=== PATIENT | female | born 1985 | race Caucasian/White ===

== ENCOUNTER 2017-10-19 09:57 | Emergency (ER) | payer OTHER, MEDICAID ==
[~2017-10-19] VITALS: Ht 144.8 cm; Wt 72.6 kg
[~2017-10-19 09:57] MED LIST: ACETAMINOPHEN-1 EAC1 PO; ATENOLOL; ATENOLOL 100MG100 M2; ATENOLOL 100MG100 M2 PO; ATENOLOL 25 MG25 M1 PO; ATENOLOL 50 MG50 M1; ATENOLOL 50MG T50 M1; ATENOLOL 50MG T50 MG; BACTRIM; BACTRIM DS TAB1 EACH PO; BENTYL20 MG PO; CARAFATE 1 GM TA1 G1 GT; CARAFATE 1 GM TA1 G1 PO; CENTANY30 GM TP; CEPHALEXIN 500500 M3 PO; CIPRO500 MG PO; CIPROFLOXACIN500 M1; CIPROFLOXACIN500 M1 PO; CITRATE OF MAG296 ML PO; CLEOCIN HCL150 M1 PO; CLEOCIN HCL150 MG PO; CLEOCIN HCL300 MG PO; CLINDAMYCIN HC150 MG OR; CYCLOBENZAPRINE10 MG PO; CYCLOBENZAPRINE5 MG PO; DEPAKOTE 250MG250 M1 PO; DEPAKOTE ER500 MG PO; DEPAKOTE250 MG PO; DEPAKOTE500 MG; DEPAKOTE500 MG PO; DOXYCYCLINE 10100 MG PO; DULCOLAX5 MG PO; ERYTHROCIN STE250 MG PO; ERYTHROMYCIN250 MG PO; FLEXERIL PO; HYDROCODON-ACE1 EAC7 PO; HYDROCODONE-AP1 EAC6 PO; HYDROCODONE-APA1 TA1 PO; IRON325 PO; LIDOCAINE VISC100 M1 SWISH&SPIT; LIDODERM 5%1 PATC1 TRANSDERM; LOPRESSOR 50 MG50 M1; LOPRESSOR 50 MG50 M1 PO; LOPRESSOR PO; MEDROLDOSEPACK PO; MIRALAX255 GM PO; NAPROXEN 500MG500 MG PO; NOHOMEMEDICATIONS; NORCO 5-325 TA1 EAC1 PO; NORCO 5-325 TA1 EACH PO; NORFLEX100 MG PO; PENICILLIN V P500 MG PO; PENICILLIN VK250 MG PO; PEPCID40 MG PO; PERCOCET 5-3251 EACH PO; PHENERGAN 25 MG25 M1 PO; PHENERGAN25 M2 RC; PREDNISONE 10 M10 M1 PO; PREDNISONE 20 M20 MG PO; PRILOSEC 20 MG20 MG PO; PROTONIX40 M1 PO; PROTONIX40 MG PO; PYRIDIUM100 M1 PO; ROBAXIN 750 MG750 M1 PO; ROBAXIN500 MG PO; SERTRALINE HCL50 MG PO; TENORMIN50 MG; TENORMIN50 MG PO; TOPROL XL100 MG; TOPROL XL50 MG PO; TRAMADOL 50 MG50 MG PO; TYLENOL325 MG PO; ULTRAM 50MG TAB50 MG PO; VICODIN; VICODIN 5-5001 EACH PO; VICODIN PO; ZOFRAN ODT4 MG PO; ZOFRAN4 MG PO; ZOLOFT; ZOLOFT 50 MG TA50 M1 PO; ZOLOFT100 MG; ZPAK PO
[2017-10-19] MEDS ORDERED: TRAMADOL 50 MG50 MG PO (10:50)
[2017-10-19 11:02] VITALS: BP 135/74
--- NOTE | 2017-10-19 16:26 | EKG ---
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 MERCEDES : 1985 Requested By: Jessica Perez Order Number: [id number] Johanna MD: Micha Monroy Measurements Intervals [place] Rate: 114 P: 56 MS: 145 QRS: 33 QRSD: 92 T: 249 QT: 327 QTc: 451 Interpretive Statements Sinus tachycardia Inferoposterior infarct, age indeterminate Abnrm T, consider ischemia, anterolateral lds Compared to ECG 10/12/2016 15:57:37 Possible ischemia now present Myocardial infarct finding still present Electronically Signed On 10-19-2017 16:25:58 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
== END 2017-10-19 11:02 | disposition home or self-care (01) ==
LOC: M.ERS 09:57
DX: S16.1XXA Strain of muscle, fascia and tendon at neck level, initial encounter (principal); R07.89 Other chest pain; I10 Essential (primary) hypertension; F31.9 Bipolar disorder, unspecified; Z98.51 Tubal ligation status; Z88.5 Allergy status to narcotic agent; Z88.6 Allergy status to analgesic agent; Z91.040 Latex allergy status; V89.2XXA Person injured in unspecified motor-vehicle accident, traffic, initial encounter; Y93.89 Activity, other specified; Y92.89 Other specified places as the place of occurrence of the external cause; Y99.8 Other external cause status

== ENCOUNTER 2017-11-11 13:37 | Emergency (ER) | payer OTHER, MEDICAID ==
[~2017-11-11] VITALS: Ht 144.8 cm; Wt 77.1 kg
[2017-11-11] MEDS ORDERED: PENICILLIN V P500 MG PO (13:47)
[2017-11-11 14:45] LABS: INFLUENZA A ANTIGEN None Detected (None Detect); INFLUENZA B ANTIGEN None Detected (None Detect)
[2017-11-11] MEDS ORDERED: AMOXICILLIN 50500 MG PO (14:52)
[2017-11-11 15:01] VITALS: BP 152/107
== END 2017-11-11 15:03 | disposition home or self-care (01) ==
LOC: M.ERS 13:37
PROVIDERS: Physician Assistant
DX: K08.89 Other specified disorders of teeth and supporting structures (principal); I10 Essential (primary) hypertension; F32.9 Major depressive disorder, single episode, unspecified; Z98.890 Other specified postprocedural states; Z90.49 Acquired absence of other specified parts of digestive tract; Z88.5 Allergy status to narcotic agent; Z88.6 Allergy status to analgesic agent; Z91.040 Latex allergy status; Z88.8 Allergy status to other drugs, medicaments and biological substances

== ENCOUNTER 2017-12-02 09:12 | Emergency (ER) | payer OTHER, MEDICAID ==
[~2017-12-02] VITALS: Ht 144.8 cm; Wt 77.1 kg
[~2017-12-02 09:12] MED LIST changes: +AMOXICILLIN 50500 MG PO
[2017-12-02] MEDS ORDERED: IRON325 PO (09:31)
[2017-12-02] MEDS ORDERED: LOPRESSOR50 PO (09:31)
[2017-12-02] MEDS ORDERED: FLEXERIL PO (09:31)
[2017-12-02] MEDS ORDERED: BENTYL 20 MG TA20 M1 PO (09:32)
[2017-12-02 11:15] VITALS: BP 156/102
== END 2017-12-02 11:15 | disposition home or self-care (01) ==
LOC: M.ERS 09:12
DX: S46.811A Strain of other muscles, fascia and tendons at shoulder and upper arm level, right arm, initial encounter (principal); S76.011A Strain of muscle, fascia and tendon of right hip, initial encounter; I10 Essential (primary) hypertension; F32.9 Major depressive disorder, single episode, unspecified; Z88.5 Allergy status to narcotic agent; Z88.6 Allergy status to analgesic agent; Z91.040 Latex allergy status; Z88.8 Allergy status to other drugs, medicaments and biological substances; W10.8XXA Fall (on) (from) other stairs and steps, initial encounter; Y93.89 Activity, other specified; Y92.89 Other specified places as the place of occurrence of the external cause; Y99.8 Other external cause status

== ENCOUNTER 2018-02-08 11:49 | Emergency (ER) | payer OTHER, MEDICAID ==
[~2018-02-08] VITALS: Ht 175.3 cm; Wt 72.6 kg
[~2018-02-08 11:49] MED LIST changes: +BENTYL 20 MG TA20 M1 PO; +LOPRESSOR50 PO
[2018-02-08] MEDS ORDERED: TYLENOL EXTRA500 MG PO (12:29)
[2018-02-08 12:41] VITALS: BP 139/82
== END 2018-02-08 12:43 | disposition home or self-care (01) ==
LOC: M.ERS 11:49
DX: S20.01XA Contusion of right breast, initial encounter (principal); I10 Essential (primary) hypertension; F32.9 Major depressive disorder, single episode, unspecified; Z88.5 Allergy status to narcotic agent; Z88.6 Allergy status to analgesic agent; Z91.040 Latex allergy status; Z88.8 Allergy status to other drugs, medicaments and biological substances; Y04.2XXA Assault by strike against or bumped into by another person, initial encounter; Y93.89 Activity, other specified; Y92.89 Other specified places as the place of occurrence of the external cause; Y99.8 Other external cause status

== ENCOUNTER 2018-02-23 15:30 | Emergency (ER) | payer OTHER, MEDICAID ==
[~2018-02-23] VITALS: Ht 149.9 cm; Wt 77.1 kg
[~2018-02-23 15:30] MED LIST changes: +TYLENOL EXTRA500 MG PO
[2018-02-23] MEDS ORDERED: TRAMADOL 50 MG50 MG PO (15:52)
[2018-02-23 16:01] VITALS: BP 141/93
== END 2018-02-23 16:02 | disposition home or self-care (01) ==
LOC: M.ERS 15:30
DX: M25.511 Pain in right shoulder (principal); I10 Essential (primary) hypertension; F31.81 Bipolar II disorder; Z90.49 Acquired absence of other specified parts of digestive tract; Z88.5 Allergy status to narcotic agent; Z88.6 Allergy status to analgesic agent; Z91.040 Latex allergy status; Z88.8 Allergy status to other drugs, medicaments and biological substances

== ENCOUNTER 2018-03-13 18:01 | Emergency (ER) | payer OTHER, MEDICAID ==
[~2018-03-13] VITALS: Ht 144.8 cm; Wt 72.6 kg
[2018-03-13] MEDS ORDERED: ATENOLOL 50MG T50 M1 PO (18:06)
[2018-03-13 18:36] LABS: AMP/METHAMP Negative (Negative); BARBITURATES Negative (Negative); BENZODIAZEPINES Negative (Negative); COCAINE Negative (Negative); METHADONE Negative (Negative); OPIATES Negative (Negative); PCP Negative (Negative); THC Negative (Negative)
[2018-03-13 18:40] LABS: ABSOLUTE BASOPHILS 0.1 thou/uL (0.0-0.2); ABSOLUTE MONOCYTES 0.3 thou/uL (0.0-1.2); ABSOLUTE NEUTROPHILS 6.3 thou/uL (1.6-8.1); BASOPHILS 0.7 %; EOSINOPHILS 0.1 %; HEMATOCRIT 37.9 % (37.0-47.0); LYMPHOCYTES 13.4 %; MCH 28.5 pg (26.0-34.0); MCHC 34.2 g/dL (28.0-37.0); MCV 83.3 fL (80.0-100.0); MONOCYTES 4.4 %; MPV 9.6 fl. (7.2-11.1); NUCLEATED RBCS 0 /100WBC; PLATELET COUNT* 214 thou/uL (150-400); POLYS 81.4 %; RBC 4.55 mil/uL (4.20-5.00); RDW-CV 13.7 % (10.5-14.5); WBC 7.8 thou/uL (4.0-11.0)
[2018-03-13 18:48] LABS: ANION GAP 8 mmol/L (7-16); BUN 6 mg/dL (7-18); CALCIUM 9.1 mg/dL (8.5-10.1); CHLORIDE 104 mmol/L (98-107); CO2 27 mmol/L (21-32); CREATININE 0.6 mg/dL (0.6-1.3); GLUCOSE 109 mg/dL (70-99); POTASSIUM 3.7 mmol/L (3.5-5.1); SODIUM 139 mmol/L (136-145)
[2018-03-13 18:55] LABS: ALBUMIN 3.6 g/dL (3.4-5.0); ALKALINE PHOSPHATASE 79 U/L (46-116); SGOT 41 U/L (15-37); SGPT 73 U/L (30-65); TOTAL BILIRUBIN 0.5 mg/dL (<0.1-1.0); TROPONIN-I LEVEL <0.06 ng/mL (<0.06)
[2018-03-13] MEDS ORDERED: CYCLOBENZAPRINE5 MG PO (19:04)
[2018-03-13 19:15] VITALS: BP 161/95
--- NOTE | 2018-03-14 10:36 | EKG ---
[place] [address] ELECTROCARDIOGRAM REPORT Name: NIXON ANN Room: [facility]#: [id number] Admission: 03/13/18 Attend Phys: Discharge: 03/13/18 Date of : 81 Report #: [id number] THIS REPORT FOR: //name// [facility] ED Test Date: 2018-03-13 Test Time: 18:39:50 Pat Name: NIXON ANN Department: Room: Gender: F Radiographer: DESTINEE : 1985 Requested By: Katy Britton Order Number: [id number] MD: Sánchez Church Measurements Intervals [place] Rate: 122 P: 104 [place]: 87 QRS: 29 QRSD: 85 T: 248 QT: 397 QTc: 566 Interpretive Statements Sinus tachycardia Borderline repolarization abnormality Prolonged QT interval nonspecific t wave changes Compared to ECG 10/19/2017 10:05:04 no change Electronically Signed On 03-14-2018 10:36:04 CDT by Sánchez Church [email or web address] <ELECTRONICALLY SIGNED> By: Sánchez Church MD, [facility] 03/14/18 1036 1839 38 Sánchez hCurch MD, [facility] /EPI
== END 2018-03-13 19:20 | disposition home or self-care (01) ==
LOC: M.ERS 18:01
PROVIDERS: Nurse Practitioner Family
DX: S20.211A Contusion of right front wall of thorax, initial encounter (principal); I10 Essential (primary) hypertension; F32.9 Major depressive disorder, single episode, unspecified; Z90.49 Acquired absence of other specified parts of digestive tract; Z98.890 Other specified postprocedural states; Z88.5 Allergy status to narcotic agent; Z88.6 Allergy status to analgesic agent; Z91.040 Latex allergy status; Z88.8 Allergy status to other drugs, medicaments and biological substances; Y04.0XXA Assault by unarmed brawl or fight, initial encounter; Y93.89 Activity, other specified; Y92.89 Other specified places as the place of occurrence of the external cause; Y99.8 Other external cause status

== ENCOUNTER 2020-05-09 20:39 | Emergency (ER) | payer OTHER ==
[~2020-05-09] VITALS: Ht 144.8 cm; Wt 79.4 kg
[~2020-05-09 20:39] MED LIST changes: +ATENOLOL 50MG T50 M1 PO
[2020-05-09 21:04] LABS: ABSOLUTE BASOPHILS 0.1 thou/uL (0.0-0.2); ABSOLUTE EOSINOPHILS 0.1 thou/uL (0.0-0.7); ABSOLUTE LYMPHOCYTES 2.4 thou/uL (0.8-5.3); ABSOLUTE MONOCYTES 0.4 thou/uL (0.0-1.2); ABSOLUTE NEUTROPHILS 4.8 thou/uL (1.6-8.1); BASOPHILS 0.6 %; EOSINOPHILS 1.9 %; HEMATOCRIT 39.7 % (37.0-47.0); HEMOGLOBIN 13.7 gm/dL (12.0-15.0); MCH 28.3 pg (26.0-34.0); MCHC 34.6 g/dL (28.0-37.0); MCV 81.9 fL (80.0-100.0); MONOCYTES 4.5 %; MPV 9.2 fl. (7.2-11.1); NUCLEATED RBCS 0 /100WBC; PLATELET COUNT* 250 thou/uL (150-400); RBC 4.85 mil/uL (4.20-5.00); RDW-CV 15.3 % (10.5-14.5); WBC 7.8 thou/uL (4.0-11.0)
[2020-05-09 21:10] LABS: URINE BILIRUBIN NEGATIVE (Negative); URINE BLOOD 3+ (Negative); URINE CLARITY CLEAR; URINE COLOR YELLOW; URINE GLUCOSE-RANDOM NEGATIVE (Negative); URINE KETONES NEGATIVE (Negative); URINE LEUKOCYTES-REFLEX NEGATIVE (Negative); URINE NITRITE-REFLEX NEGATIVE (Negative); URINE PROTEIN NEGATIVE (Negative); URINE SPECIFIC GRAVITY 1.015 (1.005-1.030)
[2020-05-09 21:17] LABS: MUCUS None Seen strn/LPF (None Seen); SQUAMOUS >10 Many /LPF (0-3)
[2020-05-09 21:18] LABS: BACTERIA-REFLEX 1-9 Few /HPF (None Seen); URINE RBC 3-10 Few /HPF (0-2); URINE WBC-REFLEX 0-5 Rare /HPF (0-5)
[2020-05-09 21:18] LABS: ALBUMIN 3.7 g/dL (3.4-5.0); CALCIUM 8.7 mg/dL (8.5-10.1); CREATININE 0.8 mg/dL (0.6-1.3); POTASSIUM 3.7 mmol/L (3.5-5.1); TOTAL BILIRUBIN 0.3 mg/dL (<0.1-1.0); TOTAL PROTEIN 7.4 g/dL (6.4-8.2)
[2020-05-09 21:19] LABS: CRYSTALS None Seen /LPF (None Seen)
[2020-05-09 21:20] LABS: CASTS None Seen /LPF (None Seen)
[2020-05-09 21:25] LABS: AMP/METHAMP Negative (Negative); BARBITURATES Negative (Negative); BENZODIAZEPINES Negative (Negative); COCAINE Negative (Negative); METHADONE POSITIVE (Negative); OPIATES Negative (Negative); PCP Negative (Negative); THC Negative (Negative)
[2020-05-09 23:20] VITALS: BP 160/80
[2020-05-09] MEDS ORDERED: ZOFRAN ODT4 MG PO (23:34)
--- NOTE | 2020-05-10 14:03 | EKG ---
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1985 Requested By: Mary Gregory Order Number: [id number] Johanna MD: Terrell Ramos Measurements Intervals [place] Rate: 102 P: 45 IA: 141 QRS: 18 QRSD: 90 T: -75 QT: 367 QTc: 479 Interpretive Statements Sinus tachycardia LVH with secondary repolarization abnormality Inferior infarct, age indeterminate Anterior Q waves, possibly due to LVH Compared to ECG 03/13/2018 18:39:50 Left ventricular hypertrophy now present Myocardial infarct finding now present Q waves now present Prolonged QT interval no longer present Electronically Signed On 05-10-2020 14:03:23 CDT by Terrell Ramos [email or web address] <ELECTRONICALLY SIGNED> By: Terrell Ramos MD, FAC 05/10/20 1403 42 42 Terrell Ramos MD, [facility] /EPI
== END 2020-05-09 23:20 | disposition home or self-care (01) ==
LOC: M.ERS 20:39
PROVIDERS: Emergency Medicine
DX: R10.13 Epigastric pain (principal); R10.31 Right lower quadrant pain; R07.89 Other chest pain; I10 Essential (primary) hypertension; Z88.5 Allergy status to narcotic agent; Z91.040 Latex allergy status; Z88.6 Allergy status to analgesic agent; Z88.8 Allergy status to other drugs, medicaments and biological substances; Z98.890 Other specified postprocedural states; Z98.51 Tubal ligation status; Z90.49 Acquired absence of other specified parts of digestive tract; Z79.899 Other long term (current) drug therapy

== ENCOUNTER 2020-05-21 21:46 | Emergency (ER) | payer OTHER ==
[~2020-05-21] VITALS: Ht 144.8 cm; Wt 77.1 kg
[2020-05-22] MEDS ORDERED: ZOFRAN ODT4 MG PO (00:02)
[2020-05-22] MEDS ORDERED: HYDROCODON-ACE1 EAC8 PO (00:02)
[2020-05-22 00:15] VITALS: BP 178/90
== END 2020-05-22 00:15 | disposition home or self-care (01) ==
LOC: M.ERS 21:46
DX: S06.0X0A Concussion without loss of consciousness, initial encounter (principal); S05.11XA Contusion of eyeball and orbital tissues, right eye, initial encounter; I10 Essential (primary) hypertension; Z88.6 Allergy status to analgesic agent; Z91.040 Latex allergy status; Z88.8 Allergy status to other drugs, medicaments and biological substances; Z98.51 Tubal ligation status; V49.59XA Passenger injured in collision with other motor vehicles in traffic accident, initial encounter; Y93.89 Activity, other specified; Y92.413 State road as the place of occurrence of the external cause; Y99.9 Unspecified external cause status

== ENCOUNTER 2020-06-24 22:28 | Emergency (ER) | payer OTHER ==
[~2020-06-24] VITALS: Ht 144.8 cm; Wt 77.1 kg
[~2020-06-24 22:28] MED LIST changes: +HYDROCODON-ACE1 EAC8 PO
[2020-06-25] MEDS ORDERED: NORCO 5-325 TA1 EAC2 PO (00:13)
[2020-06-25 00:25] VITALS: BP 172/101
== END 2020-06-25 00:26 | disposition home or self-care (01) ==
LOC: M.ERS 22:28
DX: M25.511 Pain in right shoulder (principal); I10 Essential (primary) hypertension; Z98.51 Tubal ligation status; Z88.6 Allergy status to analgesic agent; Z88.8 Allergy status to other drugs, medicaments and biological substances; X50.0XXA Overexertion from strenuous movement or load, initial encounter; Y93.89 Activity, other specified; Y92.89 Other specified places as the place of occurrence of the external cause; Y99.8 Other external cause status

== ENCOUNTER 2020-08-04 22:35 | Emergency (ER) | payer OTHER ==
[~2020-08-04] VITALS: Ht 144.8 cm; Wt 77.1 kg
[~2020-08-04 22:35] MED LIST changes: +NORCO 5-325 TA1 EAC2 PO
[2020-08-04 23:08] LABS: URINE BILIRUBIN NEGATIVE (Negative); URINE BLOOD 2+ (Negative); URINE CLARITY SL CLOUDY; URINE COLOR YELLOW; URINE GLUCOSE-RANDOM NEGATIVE (Negative); URINE KETONES TRACE (Negative); URINE LEUKOCYTES-REFLEX NEGATIVE (Negative); URINE NITRITE-REFLEX NEGATIVE (Negative); URINE PROTEIN NEGATIVE (Negative); URINE SPECIFIC GRAVITY >= 1.030 (1.005-1.030)
[2020-08-04 23:18] LABS: BACTERIA-REFLEX >30 Many /HPF (None Seen); CASTS None Seen /LPF (None Seen); CRYSTALS None Seen /LPF (None Seen); MUCUS 4-6 Moderate strn/LPF (None Seen); SQUAMOUS 4-10 Moderate /LPF (0-3); TRANSITIONAL EPITHEL CELL 0-3 Few /LPF (None Seen); URINE WBC-REFLEX None Seen /HPF (0-5)
[2020-08-04 23:29] LABS: ABSOLUTE BASOPHILS 0.1 thou/uL (0.0-0.2); ABSOLUTE EOSINOPHILS 0.2 thou/uL (0.0-0.7); ABSOLUTE LYMPHOCYTES 2.8 thou/uL (0.8-5.3); ABSOLUTE MONOCYTES 0.5 thou/uL (0.0-1.2); BASOPHILS 0.6 %; EOSINOPHILS 1.6 %; HEMATOCRIT 40.5 % (37.0-47.0); HEMOGLOBIN 13.3 gm/dL (12.0-15.0); LYMPHOCYTES 26.2 %; MCV 81.9 fL (80.0-100.0); MONOCYTES 5.1 %; MPV 9.3 fl. (7.2-11.1); NUCLEATED RBCS 0 /100WBC; PLATELET COUNT* 220 thou/uL (150-400); POLYS 66.5 %; RBC 4.94 mil/uL (4.20-5.00); RDW-CV 14.4 % (10.5-14.5); WBC 10.6 thou/uL (4.0-11.0)
[2020-08-04 23:53] LABS: CALCIUM 8.6 mg/dL (8.5-10.1); CREATININE 0.8 mg/dL (0.6-1.3); POTASSIUM 3.5 mmol/L (3.5-5.1)
[2020-08-04 23:57] LABS: ALBUMIN 3.4 g/dL (3.4-5.0); TOTAL BILIRUBIN 0.3 mg/dL (<0.1-1.0); TOTAL PROTEIN 7.2 g/dL (6.4-8.2)
[2020-08-05] MEDS ORDERED: ACETAMINOPHEN-1 EAC2 PO (01:23)
[2020-08-05] MEDS ORDERED: KEFLEX500 M1 PO (01:23)
[2020-08-05 01:46] VITALS: BP 152/74
--- NOTE | 2020-08-05 16:10 | EKG ---
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: [place] : 1985 Requested By: Aby Holcomb Order Number: [id number] MD: Sánchez Church Measurements Intervals [place] Rate: 116 P: 47 VT: 151 QRS: 26 QRSD: 88 T: 268 QT: 342 QTc: 476 Interpretive Statements Sinus tachycardia poor r wave progression Probable left atrial enlargement LVH with secondary repolarization abnormality Baseline wander in lead(s) V1 Compared to ECG 05/09/2020 20:43:52 Q waves no longer present Electronically Signed On 08-05-2020 16:10:47 PLANT CHIEF by Sánchez Church [email or web address] <ELECTRONICALLY SIGNED> By: Sánchez Church MD, FACC 08/05/20 1610 06 06 Sánchez Church MD, FAC /EPI
--- NOTE | 2020-08-05 16:12 | EKG ---
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: [place] : 1985 Requested By: Aby Holcomb Order Number: [id number] MD: Sánchez Church Measurements Intervals [place] Rate: 66 P: 49 AK: 266 QRS: -25 QRSD: 94 T: 27 QT: 425 QTc: 446 Interpretive Statements Sinus rhythm with pac's Prolonged [place] interval Borderline left axis deviation Compared to ECG 08/04/2020 23:07:12 First degree AV block now present Sinus tachycardia no longer present Left ventricular hypertrophy no longer present t wave changes no longer present Electronically Signed On 08-05-2020 16:11:55 YARN WASHER by Sánchez Church [email or web address] <ELECTRONICALLY SIGNED> By: Sánchez Church MD, FACC 08/05/20 1611 2313 2313 Sánchez Church MD, FACC /EPI
== END 2020-08-05 01:46 | disposition home or self-care (01) ==
LOC: M.ERS 22:35
PROVIDERS: Personal Emergency Response Attendant
DX: N39.0 Urinary tract infection, site not specified (principal); I10 Essential (primary) hypertension; Z91.040 Latex allergy status; Z88.6 Allergy status to analgesic agent; Z88.8 Allergy status to other drugs, medicaments and biological substances; Z98.890 Other specified postprocedural states; Z90.49 Acquired absence of other specified parts of digestive tract; Z90.89 Acquired absence of other organs

== ENCOUNTER 2020-08-26 23:45 | Emergency (ER) | payer OTHER ==
[~2020-08-26] VITALS: Ht 144.8 cm; Wt 81.7 kg
[~2020-08-26 23:45] MED LIST changes: +ACETAMINOPHEN-1 EAC2 PO; +KEFLEX500 M1 PO
[2020-08-27] MEDS ORDERED: ZANAFLEX4 MG PO (00:35)
[2020-08-27 00:57] LABS: ABSOLUTE BASOPHILS 0.1 thou/uL (0.0-0.2); ABSOLUTE EOSINOPHILS 0.2 thou/uL (0.0-0.7); ABSOLUTE LYMPHOCYTES 2.4 thou/uL (0.8-5.3); ABSOLUTE MONOCYTES 0.4 thou/uL (0.0-1.2); ABSOLUTE NEUTROPHILS 4.9 thou/uL (1.6-8.1); BASOPHILS 1.2 %; HEMATOCRIT 38.2 % (37.0-47.0); HEMOGLOBIN 12.6 gm/dL (12.0-15.0); LYMPHOCYTES 29.8 %; MCV 81.9 fL (80.0-100.0); MONOCYTES 4.4 %; MPV 10.2 fl. (7.2-11.1); NUCLEATED RBCS 0 /100WBC; POLYS 61.6 %; RBC 4.66 mil/uL (4.20-5.00); RDW-CV 14.7 % (10.5-14.5)
[2020-08-27 01:00] LABS: CALCIUM 8.5 mg/dL (8.5-10.1); CREATININE 0.9 mg/dL (0.6-1.3); POTASSIUM 3.8 mmol/L (3.5-5.1)
[2020-08-27 01:04] LABS: ALBUMIN 3.4 g/dL (3.4-5.0); TOTAL BILIRUBIN 0.2 mg/dL (<0.1-1.0); TOTAL PROTEIN 7.3 g/dL (6.4-8.2)
[2020-08-27 01:50] LABS: URINE BILIRUBIN NEGATIVE (Negative); URINE BLOOD 2+ (Negative); URINE CLARITY CLEAR; URINE COLOR YELLOW; URINE GLUCOSE-RANDOM NEGATIVE (Negative); URINE KETONES TRACE (Negative); URINE LEUKOCYTES-REFLEX NEGATIVE (Negative); URINE NITRITE-REFLEX NEGATIVE (Negative); URINE PROTEIN NEGATIVE (Negative); URINE SPECIFIC GRAVITY >= 1.030 (1.005-1.030)
[2020-08-27 02:00] LABS: AMP/METHAMP Negative (Negative); BARBITURATES Negative (Negative); BENZODIAZEPINES Negative (Negative); COCAINE Negative (Negative); METHADONE POSITIVE (Negative); OPIATES Negative (Negative); PCP Negative (Negative); THC Negative (Negative)
[2020-08-27 02:10] LABS: PLATELET ESTIMATE ADEQUATE
[2020-08-27 02:11] LABS: GIANT PLATELETS OCCASIONAL
[2020-08-27 02:12] LABS: PLATELET COUNT* 183 thou/uL (150-400)
[2020-08-27] MEDS ORDERED: HYDROCHLOROTHIA25 M2 PO (02:35)
[2020-08-27] MEDS ORDERED: LISINOPRIL-HCT1 EACH PO (02:35)
[2020-08-27] MEDS ORDERED: ATENOLOL 100MG100 MG PO (02:35)
[2020-08-27] MEDS ORDERED: ATENOLOL 50MG T50 MG PO (02:38)
[2020-08-27 02:48] LABS: CASTS None Seen /LPF (None Seen); SQUAMOUS >10 Many /LPF (0-3)
[2020-08-27 02:49] LABS: CRYSTALS None Seen /LPF (None Seen); URINE RBC 3-10 Few /HPF (0-2); URINE WBC-REFLEX None Seen /HPF (0-5)
[2020-08-27 02:53] VITALS: BP 169/95
--- NOTE | 2020-08-27 11:02 | EKG ---
[place] [address] ELECTROCARDIOGRAM REPORT Name: NIXON ANN Room: [facility]#: [id number] Admission: 08/26/20 Attend Phys: Discharge: 08/27/20 Date of : 81 Date of Service: 08/27/20 0004 Report #: [id number] THIS REPORT FOR: //name// [facility] ED Test Date: 2020-08-27 Test Time: 00:04:10 Pat Name: NIXON ANN Department: Room: Gender: Chef Assistant: BRIAN : 1985 Requested By: Aby Holcomb Order Number: [id number] MD: Sánchez Church Measurements Intervals [place] Rate: 104 P: 46 VT: 188 QRS: 30 QRSD: 89 T: -69 QT: 352 QTc: 463 Interpretive Statements Sinus tachycardia LVH with secondary repolarization abnormality Compared to ECG 08/04/2020 23:13:01 Left ventricular hypertrophy now present Early repolarization now present Sinus rhythm no longer present First degree AV block no longer present Electronically Signed On 08-27-2020 11:02:35 MOLDER APPRENTICE by Sánchez Church [email or web address] <ELECTRONICALLY SIGNED> By: Sánchez Church MD, [facility] 08/27/20 1102 0004 0004 Sánchez hCurch MD, [facility] /EPI
== END 2020-08-27 02:54 | disposition home or self-care (01) ==
LOC: M.ERS 23:45
PROVIDERS: Personal Emergency Response Attendant
DX: I16.0 Hypertensive urgency (principal); R00.0 Tachycardia, unspecified; Z20.828 Contact with and (suspected) exposure to other viral communicable diseases; I10 Essential (primary) hypertension; Z88.6 Allergy status to analgesic agent; Z88.1 Allergy status to other antibiotic agents; Z91.041 Radiographic dye allergy status; Z90.49 Acquired absence of other specified parts of digestive tract; Z98.890 Other specified postprocedural states; Z98.51 Tubal ligation status; Z79.899 Other long term (current) drug therapy